=== PATIENT | male | born 1985 | race Caucasian/White ===

== ENCOUNTER 2021-06-21 19:45 | Emergency (ER) | payer SELFPAY ==
[2021-06-21 20:27] VITALS: BP 151/92; PULSE 83; RESP 18; TEMP 36.2; O2SAT 97; BMI 25.0
--- NOTE | 2021-06-21 20:45 | XRR_ITS ---
PROCEDURE INFORMATION: Exam: XR Left Ankle Exam date and time: 06/21/2021 8:45 PM Age: 35 years old Clinical indication: Injury or trauma; Other: Flipped a insurance processing clerk over on top of himself; Blunt trauma; Ankle; Left TECHNIQUE: Imaging protocol: XR Left ankle. Views: 3 or more views. COMPARISON: No relevant prior studies available. FINDINGS: Bones/joints: Normal. Soft tissues: There is moderate soft tissue swelling overlying the mediolateral malleoli of the left ankle. XR/XR ankle LT min 3V* [id number] IMPRESSION: There are no acute osseous findings.
--- NOTE | 2021-06-21 21:36 | W.ED.EXTPRO ---
HPI - Extremity Problem General: Chief complaint: Extremity Injury, Lower Stated complaint: LLE & FACIAL INJURIES - [employer] ACCIDENT 07.23 Time Seen by Provider: 06/21/21 21:29 Source: patient Mode of arrival: ambulatory Limitations: no limitations History of Present Illness: HPI Narrative: 35-year-old male states he was mowing yesterday and was mowing over a small tree thought it be able to move without any difficulty but his lower heard upon the tree and flipped over backwards onto him. He states that he injured his left ankle when he fell. He also has a slight abrasion to his face. Denies hitting his head denies any loss consciousness. He states that he had increasing swelling in that left ankle along with pain and he is not able ambulate. He was not seen yesterday when this happened. He rates pain an 8 out of 10 currently. Associated symptoms: Deny chest pain, fever(s) or rash Review of Systems Const: Denies: fever(s), chills, body aches or change in appetite Eyes: Denies: blurry vision or eye discomfort ENMT: Denies: throat pain or dental pain Card: Denies: chest pain Resp: Denies: dyspnea GI: Denies: abdominal pain, nausea, vomiting or diarrhea : Denies: dysuria Musc: Reports: extremity pain Skin/Breast: Denies: rash Neuro: Denies: headache(s) Psych: Denies: depression Robby/Lymph: Denies: easy bruising All/Imm: Denies: urticaria Physical Exam Const: COMMON NORMALS: no acute distress, patient oriented x3 and healthy appearing HENMT: COMMON NORMALS: normocephalic and atraumatic HEAD & SCALP: normocephalic and atraumatic Eye: COMMON NORMALS: Equal, round and reactive pupils present and EOMs intact bilaterally PUPIL: Yes Equal, round and reactive pupils present Neck/C-Spine: COMMON NORMALS: full ROM and supple Chest: COMMONS NORMALS: normal inspection of the chest and normal palpation of entire chest wall Resp: COMMON NORMALS: normal respiratory effort, No retractions, No use of accessory muscles and clear to auscultation bilaterally AUSCULTATION: clear to auscultation bilaterally Cardio: COMMON NORMALS: regular rate, regular rhythm and No murmurs present (Cardio) RATE: regular rate RHYTHM: regular rhythm GI: COMMON NORMALS: Normal to inspection, nondistended, normoactive bowel sounds present, Soft to palpation, non-tender and no masses PALPATION: Yes Soft to palpation Extremity: NARRATIVE EXTREMITY EXAM: Significant swelling to left ankle with tenderness over medial and lateral aspect of the ankle. Distal pulses and sensation intact. No pain around the knee. Neuro: COMMON NORMALS: patient oriented x3, moves all extremities and no focal motor deficits Psych: COMMON NORMALS: mental status grossly normal, Normal thought process present and cooperative THOUGHT PROCESS: Normal thought process present Skin: COMMON NORMALS: no rashes or lesions noted and no wounds GENERAL SKIN EXAM: no rashes or lesions noted Course Vital Signs: Vital signs: Vital Signs Temperature 97.1 F L 06/21/21 20:27 Pulse Rate 83 06/21/21 20:27 Respiratory Rate 18 06/21/21 20:27 Blood Pressure 151/92 06/21/21 20:27 Pulse Oximetry 97 06/21/21 20:27 MDM - Extremity (Nontraumatic) MDM Narrative: Medical decision making narrative: Patient presents with an ankle sprain after an ankle injury. Did try to perform a Rogers test and it was very difficult due to his pain and extreme swelling. He is having a hard time flexing his foot as well this could be due to the pain and swelling but am concerned of a possible Achilles injury. We will place him in a splint and have him nonweightbearing and have him follow-up with orthopedics. Imaging Data^: Xray Ortho: Attestation: I personally reviewed and interpreted this imaging study as follows: My impression: No acute fracture Discharge Plan Discharge Patient Disposition: Home Clinical Impression: Ankle sprain and strain Condition: Stable Prescriptions: New hydrocodone-acetaminophen 5-325 mg tablet 1 tab PO Q6H PRN (Reason: pain) Qty: 14 RF: 0 Discharge Orders: Discharge ED (Routine); Ordered 06/21/21 Ordered By: Estevan Patel Referrals: Tyshawn Alegria DO [Physician] - 1-3 days Discharge Diet: Advance as tolerated Discharge Activity: Resume usual activity Patient Instructions: Ankle Sprain (ED), Ankle Stirrup Splint (ED), Opioid Safety Coding Level of Care Code ED Cash Posting Specialist for Chg Fwd Exam Comprehensive
[2021-06-21] MEDS: HYDROcodone-acetaminophen 10-325 mg Tablet 1 TAB PO (21:38)
[2021-06-21] MEDS: tetanus-dipt-pertussis 0.5 mL SDV IM (21:39)
[2021-06-21 22:47] VITALS: PULSE 79; RESP 18; O2SAT 98
--- NOTE | 2021-06-23 10:07 | DCPLANNER ---
manufacturing quality manager had message to schedule a follow up appointment for patient with ortho for an ankle sprain. manufacturing quality manager called the ortho clinic, spoke with Flavia, gave clinic patients information. manufacturing quality manager was told that patients information would be printed and reviewed. Clinic will call patient with appointment information.
--- NOTE | 2021-06-24 08:16 | DCPLANNER ---
Patient has a follow up appointment scheduled for Wednesday, June 27, 2021 at 11:[address] Camara at [facility]. Clinic will call patient with appointment information.
--- NOTE | 2021-07-03 12:11 | DCPLANNER ---
Patient had a follow up appointment scheduled for 06.27.21 with ortho - patient did attend appointment.
== END 2021-06-21 22:47 | disposition home or self-care (01) ==
PROVIDERS: Emergency Provider Emergency Medicine
DX: S93.402A Sprain of unspecified ligament of left ankle, initial encounter (principal); W19.XXXA Unspecified fall, initial encounter; Y93.89 Activity, other specified
CPT/HCPCS: 29515; 73610; 90471; 90715; 99283; E0114

== ENCOUNTER 2021-06-30 08:18 | Outpatient (CLI) | payer SELFPAY ==
--- NOTE | 2021-06-30 08:45 | US_ITS ---
WS: [id number] INDICATION: Rule out Achilles tear TECHNIQUE: Ultrasound Achilles tendon FINDINGS: Ultrasound left Achilles tendon. Left Achilles tendon appears intact. No evidence of comple te tear or tendon retraction. Left Achilles could be further evaluated with MRI. Right Achilles comparison appears normal. US/US soft tissue/extremity [id number] IMPRESSION: No evidence of high-grade left Achilles tendon rupture. No evidence of retraction. If persistent concern, this can be further evaluated with MRI.
== END 2021-06-30 08:19 | disposition home or self-care (01) ==
PROVIDERS: Visit Provider Podiatrist Foot & Ankle Surgery
DX: S93.402A Sprain of unspecified ligament of left ankle, initial encounter (principal); S96.912A Strain of unspecified muscle and tendon at ankle and foot level, left foot, initial encounter; X58.XXXA Exposure to other specified factors, initial encounter
CPT/HCPCS: 76882